=== PATIENT | male | born 1980 | race Caucasian/White ===

== ENCOUNTER 2018-06-03 11:27 | Emergency (ER) | payer OTHER ==
[~2018-06-03] VITALS: Ht 167.6 cm; Wt 65.0 kg
[2018-06-03] MEDS ORDERED: MIRT30TA4 PO (11:49)
[2018-06-03] MEDS ORDERED: PHEN50TA PO (11:49)
[2018-06-03] MEDS ORDERED: DIVA250T4 PO (11:49)
[2018-06-03 12:09] LABS: ALBUMIN 3.4 g/dL (3.4-5.0); ANION GAP 7 mmol/L (5-15); CALCIUM 9.3 mg/dL (8.5-10.1); CHLORIDE 103 mmol/L (98-107); CREATININE 0.69 mg/dL (0.7-1.3)
[2018-06-03] MEDS ORDERED: DIVALPROEX 500 MG TABLET.DR PO ONE (13:00)
[2018-06-03] MEDS ORDERED: PHENYTOIN 100 MG CAPSULE ONE (13:31)
[2018-06-03] MEDS ORDERED: DIVALPROEX 500 MG TAB.ER.24H ONE (13:31)
[2018-06-03 13:45] VITALS: BP 119/75
[2018-06-03] MEDS ORDERED: PHENYTOIN 100 MG CAPSULE PO ONE (21:00)
== END 2018-06-03 13:47 | disposition home or self-care (01) ==
LOC: ED 12:02
DX: G40.419 Other generalized epilepsy and epileptic syndromes, intractable, without status epilepticus (principal)
CPT/HCPCS: 36415; 80048; 80164; 80185; 82040; 83605; 93005; 99285

== ENCOUNTER 2018-07-08 13:36 | Emergency (ER) | payer OTHER ==
[~2018-07-08] VITALS: Ht 167.6 cm; Wt 67.0 kg
[~2018-07-08 13:36] MED LIST: DIVA250T4 PO; MIRT30TA4 PO; PHEN50TA PO
[2018-07-08 15:17] VITALS: BP 104/57
== END 2018-07-08 16:32 | disposition home or self-care (01) ==
LOC: ED 14:05
DX: G40.319 Generalized idiopathic epilepsy and epileptic syndromes, intractable, without status epilepticus (principal)
CPT/HCPCS: 99283

== ENCOUNTER → 2018-10-22 | Outpatient (CLI) | payer SELFPAY | END | disposition home or self-care (01) | LOC: CARD 13:07 | PROVIDERS: ATTEND Nurse Practitioner Acute Care | DX: G40.89 Other seizures (principal); E78.5 Hyperlipidemia, unspecified | CPT/HCPCS: 95819 ==

== ENCOUNTER → 2019-06-04 | Outpatient (CLI) | payer OTHER | END | disposition home or self-care (01) | LOC: CARD 12:35 | PROVIDERS: ATTEND Psychiatry & Neurology Neurology | DX: F43.23 Adjustment disorder with mixed anxiety and depressed mood (principal); F31.30 Bipolar disorder, current episode depressed, mild or moderate severity, unspecified; F31.9 Bipolar disorder, unspecified; R06.00 Dyspnea, unspecified; G40.909 Epilepsy, unspecified, not intractable, without status epilepticus; F19.90 Other psychoactive substance use, unspecified, uncomplicated; M25.561 Pain in right knee; F15.90 Other stimulant use, unspecified, uncomplicated; J32.9 Chronic sinusitis, unspecified; F17.200 Nicotine dependence, unspecified, uncomplicated; Z91.040 Latex allergy status; Z59.6 Low income; Z72.4 Inappropriate diet and eating habits; Z59.0 Homelessness; Z59.8 Other problems related to housing and economic circumstances; Z60.9 Problem related to social environment, unspecified; Z91.02 Food additives allergy status; Z88.8 Allergy status to other drugs, medicaments and biological substances; Z91.013 Allergy to seafood | CPT/HCPCS: 95819 ==